=== PATIENT | male | born 1955 | race Caucasian/White ===

== ENCOUNTER → 2022-10-15 14:50 | Outpatient (CLI) | payer BC, SELFPAY ==
--- NOTE | ~2022-10-15 | MR_ITS ---
MRI of the right shoulder Technique: Axial proton-density fat-sat images, coronal proton density fat-sat and T2 fat-sat images, and sagittal T1-weighted and T2 fat-sat images were acquired. Clinical History: Pain Findings: There is [id number] AC joint degenerative change without significant subacromial spur . Cortical clavicular, coracoacromial, and coracohumeral ligaments are probably intact. There is full-thickness tearing of the distal supraspinatus and infraspinatus tendons, retracted to 1 2:00 position of the humeral head. Fluid-filled gap measures up to approximately 1.8 x 2.3 cm in exte nt. There is moderate tendinosis of the retracted tendons. There is moderate subscapularis tendinosis , without definite partial or full-thickness tear. Tendon of the long head of the biceps appears félix edly diminutive. No definite labral tear identified. Inferior glenohumeral ligament is intact. Minimal glenohumeral joint effusion present, with fluid pas sing through the rotator cuff defect into the subacromial/subdeltoid bursa. No muscle atrophy or rashmi a evident. No degenerative change of the glenohumeral joint. Impression: Complete full thickness tearing of the supraspinatus and infraspinatus tendons, with retraction fluid filled defect, as detailed above. Biceps tendon may be markedly diminutive, versus chronically torn and retracted. No labral tear evident. Reviewed, dictated and finalized at [facility]. ER UPPERS OR LININGS Impression: Complete full thickness tearing of the supraspinatus and infraspinatus tendons, with retraction fluid filled defect, as detailed above. Biceps tendon may be markedly diminutive, versus chronically torn and retracted . No labral tear evident.
== END ==
PROVIDERS: PCP Orthopaedic Surgery; Visit Provider Orthopaedic Surgery
DX: M25.511 Pain in right shoulder (principal)
CPT/HCPCS: 73221